=== PATIENT | male | born 2005 | race Caucasian/White ===

== ENCOUNTER 2025-06-02 12:08 | Emergency (ER) | payer OTHER ==
[2025-06-02] MEDS ORDERED: Ibuprofen 600 MG TAB ONE (12:27)
== END 2025-06-02 13:05 | disposition home or self-care (01) ==
LOC: MADERS 12:08
DX: S93.402A Sprain of unspecified ligament of left ankle, initial encounter (principal); I10 Essential (primary) hypertension; F17.290 Nicotine dependence, other tobacco product, uncomplicated; Z79.899 Other long term (current) drug therapy; X50.1XXA Overexertion from prolonged static or awkward postures, initial encounter
CPT/HCPCS: 99283